=== PATIENT | female | born 2000 | race American Indian/Alaskan Native ===

== ENCOUNTER 2019-06-28 19:44 | Emergency (ER) | payer SELFPAY ==
--- NOTE | 2019-06-28 19:50 | Emergency Department Report ---
Blank Doc - Documentation Documentation: This is a 19-year-old female that presents with n/v and abdominal pain. This initial assessment/diagnostic orders/clinical plan/treatment(s) is/are subject to change based on patient's health status, clinical progression and re- assessment by fellow clinical providers in the ED. Further treatment and workup at subsequent clinical providers discretion. Patient/guardians urged not to elope from the ED as their condition may be serious if not clinically assessed and managed. Initial orders include: 1- Patient sent to [facility] for further evaluation and treatment 2- labs 3- UA
[2019-06-28 20:24] LABS: Bilirubin,Urine NEG (Negative); Blood,Urine NEG (Negative); Color,Urine Yellow (Yellow); Mucus,Urine 3+ /HPF; Protein,Urine <15 mg/dL mg/dL (Negative); Urobilinogen,Urine < 2.0 mg/dL (<2.0); WBC,Urine < 1.0 /HPF (0.0-6.0)
[2019-06-28 20:29] LABS: Basophils # (Auto) 0.1 K/mm3 (0.0-0.1); Basophils % (Auto) 0.9 % (0.0-1.8); Eosinophils # (Auto) 0.2 K/mm3 (0.0-0.4); Eosinophils % (Auto) 2.7 % (0.0-4.3); Hematocrit 41.1 % (30.3-42.9); Hemoglobin 13.6 gm/dl (10.1-14.3); Lymphocytes % (Auto) 32.9 % (13.4-35.0); Mean Corpuscular HGB Conc 33 % (30-34); Mean Corpuscular Volume 84 fl (79-97); Monocytes # (Auto) 0.7 K/mm3 (0.0-0.8); Monocytes % (Auto) 10.8 % (0.0-7.3); Platelet Count 177 K/mm3 (140-440); Red Blood Count 4.89 M/mm3 (3.65-5.03)
[2019-06-28 21:17] LABS: Alanine Aminotransferase 9 units/L (7-56); Albumin 4.5 g/dL (3.9-5); BUN/Creatinine Ratio 16; Blood Urea Nitrogen 11 mg/dL (7-17); Calcium 9.5 mg/dL (8.4-10.2); Hemolysis Index 6
[2019-06-28] MEDS ORDERED: ZOFRAN ODT PO ONE (22:57)
--- NOTE | 2019-06-28 22:57 | Emergency Department Report ---
ED N/V/D HPI - General Chief complaint: Abdominal Pain Stated complaint: ABDOMINAL PAIN/VOMITING Time Seen by Provider: 06/28/19 19:49 Source: patient Mode of arrival: Ambulatory Limitations: No Limitations - History of Present Illness Initial comments: 19 y.o with two days h/o nausea, vomiting, post prandial vomiting. Patient denies any diarrhea, fever, hematemesis, hematochezia, melena. She states adequate urine output, and po intake. She denies any recent travel, sick contacts. She denies any past medical history of infectious diarrhea, diverticu litis, ibs or inflammatory bowel disease. - Related Data Previous Rx's Medication Instructions Recorded Last Taken Type Promethazine [Phenergan] 25 mg PO Q8HR PRN #15 tab 06/28/19 Unknown Rx Allergies Allergy/AdvReac Type Severity Reaction Status Date / Time No Known Allergies Allergy Verified 06/28/19 19:48 ED Review of Systems ROS: Stated complaint: ABDOMINAL PAIN/VOMITING Other details as noted in HPI Comment: All other systems reviewed and negative Constitutional: denies: chills, fever Cardiovascular: denies: chest pain Gastrointestinal: abdominal pain, nausea, vomiting. denies: diarrhea, constipation, hematemesis ED Past Medical Hx - Past Medical History Previous Medical History?: No - Surgical History Past Surgical History?: No - Social History Smoking Status: Never Smoker Substance Use Type: Alcohol - Medications Home Medications: Home Medications Medication Instructions Recorded Confirmed Last Taken Type Promethazine [Phenergan] 25 mg PO Q8HR PRN #15 tab 06/28/19 Unknown Rx ED Physical Exam - General Limitations: No Limitations General appearance: alert, in no apparent distress - Head Head exam: Present: atraumatic, normocephalic - Eye Eye exam: Present: normal appearance, PERRL, EOMI Pupils: Present: normal accommodation - ENT ENT exam: Present: normal exam, normal orophraynx - Neck Neck exam: Present: normal inspection - Respiratory Respiratory exam: Present: normal lung sounds bilaterally - Cardiovascular Cardiovascular Exam: Present: regular rate, normal rhythm - GI/Abdominal GI/Abdominal exam: Present: soft, normal bowel sounds - Back Exam Back exam: Present: normal inspection - Neurological Exam Neurological exam: Present: alert, oriented X3, CN II-XII intact - Psychiatric Psychiatric exam: Present: normal affect ED Medical Decision Making - Lab Data Result diagrams: 06/28/19 20:11 06/28/19 20:11 Critical care attestation.: If time is entered above; I have spent that time in minutes in the direct care of this critically ill patient, excluding procedure time. ED Disposition Clinical Impression: Acute gastroenteritis Disposition: [id number] TO HOME OR SELFCARE Is pt being admited?: No Does the pt Need Aspirin: No Condition: Stable Instructions: Abdominal Pain (ED) Prescriptions: Promethazine [Phenergan] 25 mg PO Q8HR PRN #15 tab PRN Reason: Nausea [facility]Primary Care Provider[facility] - 3-5 Days
== END 2019-06-28 22:57 | disposition home or self-care (01) ==
LOC: ED 19:44
DX: K52.9 Noninfective gastroenteritis and colitis, unspecified (principal)
CPT/HCPCS: 36415; 80053; 81001; 83690; 84703; 85025; Q0162

== ENCOUNTER 2019-08-12 00:54 | Emergency (ER) | payer SELFPAY ==
[2019-08-12 01:02] VITALS: BP 127/88
--- NOTE | 2019-08-12 01:21 | Emergency Department Report ---
ED Female HPI - General Chief complaint: Vaginal Bleeding Stated complaint: VAGINAL BLEEDING, ABDOMINAL CRAMPS Time Seen by Provider: 08/12/19 01:20 Source: patient Mode of arrival: Ambulatory Limitations: No Limitations - History of Present Illness Initial comments: Patient is a 19-year-old female that presents emergency room with complaints of vaginal bleeding and abdominal cramping and pain. Patient states her symptoms started yesterday approximately 24 hours ago. Patient states all of her symptoms and abdominal pain stopped about 2 hours ago. Patient states she came to the ER to be checked out because she had large clots and lots of blood per the vagina. Patient states her period has been regular. Patient states her last sexual encounter was 3 months ago. Patient denies dysuria. Patient denies fever and chills. Patient states her abdominal pain was a 10 out of 10. Patient now is not having any abdominal pain. Patient states her abdominal pain now is 0 out of 10. Patient states her pain was better with rest and worse with movement. MD Complaint: vaginal bleeding -: Sudden Location: suprapubic Radiation: non-radiating Severity scale (0 -10): 0 Quality: cramping Consistency: constant Improves with: other Worsens with: movement Are you Now?: No Associated Symptoms: vaginal bleeding, abdominal pain. denies: vaginal discharge, nausea/vomiting, fever/chills, headaches, loss of appetite, dysuria, hematuria, rash, seizure, shortness of breath, syncope, weakness - Related Data Sexually active: Yes Previous Rx's Medication Instructions Recorded Last Taken Type Promethazine [Phenergan] 25 mg PO Q8HR PRN #15 tab 06/28/19 Unknown Rx Ibuprofen [Motrin 800 MG tab] 800 mg PO Q8HR PRN #25 tablet 08/12/19 Unknown Rx Allergies Allergy/AdvReac Type Severity Reaction Status Date / Time No Known Allergies Allergy Verified 06/28/19 19:48 ED Review of Systems ROS: Stated complaint: VAGINAL BLEEDING, ABDOMINAL CRAMPS Other details as noted in HPI Comment: All other systems reviewed and negative ED Past Medical Hx - Past Medical History Previous Medical History?: No - Surgical History Past Surgical History?: No - Family History Family history: no significant - Social History Smoking Status: Never Smoker Substance Use Type: None - Medications Home Medications: Home Medications Medication Instructions Recorded Confirmed Last Taken Type Promethazine [Phenergan] 25 mg PO Q8HR PRN #15 tab 06/28/19 Unknown Rx Ibuprofen [Motrin 800 MG tab] 800 mg PO Q8HR PRN #25 tablet 08/12/19 Unknown Rx ED Physical Exam - General Limitations: No Limitations General appearance: alert, in no apparent distress - Head Head exam: Present: atraumatic, normocephalic - Eye Eye exam: Present: normal appearance - ENT ENT exam: Present: mucous membranes moist - Neck Neck exam: Present: normal inspection - Respiratory Respiratory exam: Present: normal lung sounds bilaterally. Absent: respiratory distress, wheezes, rales - Cardiovascular Cardiovascular Exam: Present: regular rate, normal rhythm. Absent: systolic murmur, diastolic murmur, rubs, gallop - GI/Abdominal GI/Abdominal exam: Present: soft, normal bowel sounds. Absent: distended, ten derness, guarding - Rectal Rectal exam: Present: deferred - Extremities Exam Extremities exam: Present: normal inspection - Back Exam Back exam: Present: normal inspection - Neurological Exam Neurological exam: Present: alert, oriented X3 - Psychiatric Psychiatric exam: Present: normal affect, normal mood - Skin Skin exam: Present: warm, dry, intact, normal color. Absent: rash ED Course Vital Signs 08/12/19 00:59 Temperature 98.7 F Pulse Rate 77 Respiratory 18 Rate Blood Pressure 127/88 O2 Sat by Pulse 97 Oximetry - Reevaluation(s) Reevaluation #1: I discussed all results with patient. I discussed plan of care with patient. Patient agrees with plan of care. Patient is stable for discharge. Patient will be discharged home. Patient given discharge instructions. Patient voiced understanding of discharge instructions. 08/12/19 03:51 ED Medical Decision Making - Lab Data Result diagrams: 08/12/19 01:23 08/12/19 01:23 - Radiology Data Radiology results: report reviewed ULTRASOUND PELVIS INDICATION / CLINICAL INFORMATION: vaginal bleed.. abd pain. TECHNIQUE: Transvaginal. Duplex Color Doppler used: Yes. COMPARISON: None available FINDINGS: UTERUS: Present. - Appearance (if present): No significant abnormality. - Size in cm (if present): 6.9 x 3.1 x 3.3. - Endometrial Complex (if present): No significant abnormality.. Thickness in cm (if measured) = 0.65 - Mass lesions: None. - Additional findings: None. RIGHT ADNEXA: Multiple small ovarian follicles. Normal color Doppler blood flow. LEFT ADNEXA: Multiple small ovarian follicles. Normal color Doppler blood flow. URINARY BLADDER: Not visualized. FREE FLUID: None. ADDITIONAL FINDINGS: None. IMPRESSION: 1. No significant abnormality. - Medical Decision Making is a 19-year-old female that presents emergency room with heavy vaginal bleeding and passing clots and abdominal pain. Prior to initial exam the patient's symptoms had improved and pain had resolved. Patient states that the vaginal bleeding also terminated prior to initial exam. Patient had labs done and ultrasound done. Labs unremarkable. Patient's ultrasound shows no acute findings. Patient stable for discharge to patient states her home. Patient will need to follow up with a [facility] outpatient. - Differential Diagnosis Painful menses. Abdominal pain. Abnormal vaginal bleeding. Critical care attestation.: If time is entered above; I have spent that time in minutes in the direct care of this critically ill patient, excluding procedure time. ED Disposition Clinical Impression: Dysmenorrhea Abdominal pain Qualifiers: Abdominal location: lower abdomen, unspecified Qualified Code(s): R10.30 - Lower abdominal pain, unspecified Menorrhagia Qualifiers: Menorrahagia type: with regular cycle Qualified Code(s): N92.0 - Excessive and frequent menstruation with regular cycle Disposition: TO HOME OR SELFCARE Is pt being admited?: No Does the pt Need Aspirin: No Condition: Stable Instructions: Menstruation (ED), Acute Abdominal Pain (ED), Abdominal Pain (ED), Menorrhagia (ED), Dysmenorrhea (ED) Additional Instructions: Patient to follow-up with primary care in 2-3 days. Patient to follow-up with [facility] in 2-3 days. Patient to return to ER if condition worsens. Patient to rest. Patient to increase water. Patient to take meds as directed. Patient's take Tylenol or ibuprofen when necessary for pain. Prescriptions: Ibuprofen [Motrin 800 MG tab] 800 mg PO Q8HR PRN #25 tablet PRN Reason: pain Referrals: JYOTHI FAIRCHILD MD [Staff Physician] - 2-3 Days PRIMARY CARE, [Primary Care Provider] - 2-3 Days Time of Disposition: 03:55
[2019-08-12 01:47] LABS: Basophils # (Auto) 0.1 K/mm3 (0.0-0.1); Basophils % (Auto) 0.7 % (0.0-1.8); Eosinophils # (Auto) 0.2 K/mm3 (0.0-0.4); Eosinophils % (Auto) 2.7 % (0.0-4.3); Hematocrit 38.5 % (30.3-42.9); Lymphocytes # (Auto) 2.6 K/mm3 (1.2-5.4); Lymphocytes % (Auto) 30.8 % (13.4-35.0); Mean Corpuscular HGB Conc 34 % (30-34); Mean Corpuscular Volume 83 fl (79-97); Monocytes # (Auto) 1.1 K/mm3 (0.0-0.8); Monocytes % (Auto) 12.8 % (0.0-7.3); Platelet Count 183 K/mm3 (140-440); Red Blood Count 4.63 M/mm3 (3.65-5.03); Red Cell Distribution Width 13.3 % (13.2-15.2)
[2019-08-12 02:13] LABS: Alanine Aminotransferase 8 units/L (7-56); Albumin 4.7 g/dL (3.9-5); BUN/Creatinine Ratio 19; Blood Urea Nitrogen 15 mg/dL (7-17); Calcium 9.1 mg/dL (8.4-10.2); Hemolysis Index 4
[2019-08-12 02:31] LABS: Bilirubin,Urine NEG (Negative); Blood,Urine LG (Negative); Color,Urine Yellow (Yellow); Mucus,Urine FEW /HPF; Urobilinogen,Urine < 2.0 mg/dL (<2.0)
--- NOTE | 2019-08-12 03:23 | Ultrasound Report ---
ULTRASOUND PELVIS INDICATION / CLINICAL INFORMATION: vaginal bleed.. abd pain. TECHNIQUE: Transvaginal. Duplex Color Doppler used: Yes. COMPARISON: None available FINDINGS: UTERUS: Present. - Appearance (if present): No significant abnormality. - Size in cm (if present): 6.9 x 3.1 x 3.3. - Endometrial Complex (if present): No significant abnormality.. Thickness in cm (if measured) = 0.65 - Mass lesions: None. - Additional findings: None. RIGHT ADNEXA: Multiple small ovarian follicles. Normal color Doppler blood flow. LEFT ADNEXA: Multiple small ovarian follicles. Normal color Doppler blood flow. URINARY BLADDER: Not visualized. FREE FLUID: None. ADDITIONAL FINDINGS: None. IMPRESSION: 1. No significant abnormality. Signer Name: Tracey Kirk MD Signed: 08/12/2019 3:19 AM Workstation Name: [id number]
== END 2019-08-12 04:05 | disposition home or self-care (01) ==
LOC: ED 00:54
DX: N92.0 Excessive and frequent menstruation with regular cycle (principal); N94.6 Dysmenorrhea, unspecified; Z79.899 Other long term (current) drug therapy
CPT/HCPCS: 36415; 76830; 80053; 81001; 84703; 85025; 87086; 99284